=== PATIENT | female | born 1945 | race Native Hawaiian/Other Pacific Islander ===

== ENCOUNTER 2016-12-09 10:25 | Outpatient (CLI) | payer OTHER, BC | END 2016-12-09 21:27 | disposition home or self-care (01) | LOC: MAMMO 10:25 | DX: Z12.31 Encounter for screening mammogram for malignant neoplasm of breast (principal) | CPT/HCPCS: G0202-TC ==

== ENCOUNTER 2016-12-10 07:39 | Outpatient (CLI) | payer OTHER, BC ==
[2016-12-10 07:58] LABS: PLATELET COUNT 171 K/uL (152-353)
[2016-12-10 08:38] LABS: POTASSIUM 3.6 mmol/L (3.6-5.2); SODIUM 138 mmol/L (136-145)
== END 2016-12-10 19:56 | disposition home or self-care (01) ==
LOC: LABW 07:39
PROVIDERS: Nurse Practitioner
DX: R53.83 Other fatigue (principal); E78.00 Pure hypercholesterolemia, unspecified; Z79.899 Other long term (current) drug therapy; N95.8 Other specified menopausal and perimenopausal disorders; Z51.81 Encounter for therapeutic drug level monitoring; E55.9 Vitamin D deficiency, unspecified
CPT/HCPCS: 36415; 80053; 80061; 82306; 84443; 85027

== ENCOUNTER 2017-12-13 09:01 | Outpatient (CLI) | payer OTHER, BC | END 2017-12-13 10:05 | disposition home or self-care (01) | LOC: MAMMO 09:01 | DX: Z12.31 Encounter for screening mammogram for malignant neoplasm of breast (principal) ==

== ENCOUNTER 2017-12-14 08:12 | Outpatient (CLI) | payer OTHER, BC | END 2017-12-14 19:55 | disposition home or self-care (01) | LOC: LABW 08:12 | PROVIDERS: Nurse Practitioner | DX: E78.00 Pure hypercholesterolemia, unspecified (principal) | CPT/HCPCS: 36415; 80061 ==

== ENCOUNTER 2018-12-08 08:27 | Outpatient (CLI) | payer OTHER, BC ==
[2018-12-08 08:53] LABS: PLATELET COUNT 161 K/uL (152-353)
[2018-12-08 09:12] LABS: POTASSIUM 3.8 mmol/L (3.6-5.2)
== END 2018-12-08 19:10 | disposition home or self-care (01) ==
LOC: LABW 08:27
PROVIDERS: Nurse Practitioner
DX: Z00.00 Encounter for general adult medical examination without abnormal findings (principal); E55.9 Vitamin D deficiency, unspecified; E53.8 Deficiency of other specified B group vitamins; R53.83 Other fatigue; E78.00 Pure hypercholesterolemia, unspecified
CPT/HCPCS: 36415; 80053; 80061; 82306; 82607; 84443; 85027

== ENCOUNTER 2020-03-27 08:35 | Outpatient (CLI) | payer OTHER, BC ==
[2020-03-27 09:44] LABS: POTASSIUM 3.4 mmol/L (3.6-5.2)
[2020-03-27 10:51] LABS: PLATELET COUNT 142 K/uL (152-353)
== END 2020-03-27 20:41 | disposition home or self-care (01) ==
LOC: MAMMO 08:35
PROVIDERS: Physician Assistant
DX: E78.49 Other hyperlipidemia (principal); Z78.0 Asymptomatic menopausal state; Z12.31 Encounter for screening mammogram for malignant neoplasm of breast
CPT/HCPCS: 36415; 80053; 80061; 82248; 82672; 85027

== ENCOUNTER 2021-04-20 10:08 | Outpatient (CLI) | payer OTHER, BC | END 2021-04-20 20:58 | disposition home or self-care (01) | LOC: MAMMO 10:08 | PROVIDERS: ATTEND Physician Assistant | DX: Z12.31 Encounter for screening mammogram for malignant neoplasm of breast (principal) ==

== ENCOUNTER 2022-04-29 08:33 | Outpatient (CLI) | payer OTHER, BC | END 2022-04-29 18:55 | disposition home or self-care (01) | LOC: MAMMO 08:33 | PROVIDERS: ATTEND Internal Medicine | DX: Z12.31 Encounter for screening mammogram for malignant neoplasm of breast (principal) ==

== ENCOUNTER 2023-05-20 10:45 | Outpatient (CLI) | payer OTHER, BC | END 2023-05-20 20:50 | disposition home or self-care (01) | LOC: MAMMO 10:45 | PROVIDERS: ATTEND Internal Medicine | DX: Z12.31 Encounter for screening mammogram for malignant neoplasm of breast (principal) ==